=== PATIENT | male | born 1970 | race African-American/Black ===

== ENCOUNTER → 2020-10-21 13:47 | Outpatient (BNVA) | payer OTHER, SELFPAY | PROVIDERS: PCP Internal Medicine; Visit Provider Surgery ==

== ENCOUNTER 2021-01-14 06:03 | Day surgery (SDC) | payer OTHER, SELFPAY ==
[2021-01-07 14:38] VITALS: BMI 27.6
--- NOTE | 2021-01-12 12:32 | HO.ANESPROP2 ---
Documented by User: Jaida Ramirez 01/12/21 12:33 HPI - Anesthesia Eval Consult details Narrative: 50yo M for Colonoscopy PMFSH Active Problems Active Problems: All Active Problems (Updated 10/21/20 @ 14:51 by Dom Day MD) Colon cancer screening (Acute) Hyperlipidemia (Acute) Hypertension (Acute) Past Medical History Medical History Colon cancer screening Hyperlipidemia Hypertension Family History Family History Father History of colon cancer Surgical History Surgical History Hx of umbilical hernia repair Social History Social History Alcohol intake: never Smoking Status: Never smoker Use of substances other than those prescribed or required for medical reasons: No Have you been hit, kicked, punched, or otherwise hurt by someone within the past year? If so, by whom?: No Advance Directives: No Advance Directives Information Provided: No Advance Directives on File: No Recently lost weight without trying: No Eating poorly because of decreased appetite: No Nutrition Risks: No Nutritional Risk Meds Allergies Allergy/AdvReac Type Severity Reaction Status Date / Time No Known Allergies Allergy Verified 10/21/20 14:20 [No Known Allergies*] Home Medications Medication Instructions Recorded Confirmed Last Taken Type atorvastatin 10 mg tablet 10 mg PO DAILY 10/21/20 01/07/21 Unknown History blood pressure test kit-large #1 ea 10/21/20 Unknown History enalapril 10 1 tab PO DAILY 10/21/20 01/07/21 Unknown History mg-hydrochlorothiazide 25 mg tablet Exam Exam Date and Time: January 12, 2021 1232 Height,Weight and Vital Signs: Height 5 ft 7 in Weight 79.832 kg Assessment and Plan Assessment Anesthesia Assessment: Chart Reviewed Documented by User: Evelyn Narayan 01/14/21 07:36 PMFSH Past Medical History Medical History Colon cancer screening Hyperlipidemia Hypertension Family History Family History Father History of colon cancer Surgical History Surgical History Hx of umbilical hernia repair Social History Social History Alcohol intake: never Smoking Status: Never smoker Use of substances other than those prescribed or required for medical reasons: No Have you been hit, kicked, punched, or otherwise hurt by someone within the past year? If so, by whom?: No Advance Directives: No Advance Directives Information Provided: No Advance Directives on File: No Recently lost weight without trying: No Eating poorly because of decreased appetite: No Nutrition Risks: No Nutritional Risk Meds Allergies Allergy/AdvReac Type Severity Reaction Status Date / Time No Known Allergies Allergy Verified 10/21/20 14:20 [No Known Allergies*] Home Medications Medication Instructions Recorded Confirmed Last Taken Type atorvastatin 10 mg tablet 10 mg PO DAILY 10/21/20 01/07/21 Unknown History blood pressure test kit-large #1 ea 10/21/20 Unknown History enalapril 10 1 tab PO DAILY 10/21/20 01/07/21 Unknown History mg-hydrochlorothiazide 25 mg tablet Exam Airway Mallampati Class: II TM Dist: >3cm Neck ROM: Full Assessment and Plan Assessment Anesthesia Assessment: Anesthesia Plan Discussed and Chart Reviewed Final Anesthetic Review NPO: Yes ASA Class: II Final Preanesthetic Review: No Changes in Pt Med Stat, Meds/Allgs Chart Reviewed, Consent Obtained/Reviewed and Anes Risks/Benef Reviewed Patient Risk: Low Procedure Risk: Low Assessment/Block/Sedation in SS: Assess/Block/Sedation-SS Anesthetic Plan Anesthetic Plan: MAC: Disposition: Standard PACU
[2021-01-14 06:19] VITALS: BP 126/81; PULSE 75; RESP 16; TEMP 36.6; O2SAT 96
[2021-01-14] MEDS: Lactated Ringers 1,000 ML 100 ML IVCONT (06:34)
--- NOTE | 2021-01-14 07:20 | MHC.SHP ---
Pre-Procedural Eval Section B Chief Complaint: Screening Allergies: Allergies Allergy/AdvReac Type Severity Reaction Status Date / Time No Known Allergies Allergy Verified 10/21/20 14:20 [No Known Allergies*] Plan I have reviewed the history and physical and performed a pertinent physical examination on my patient. No changes have occurred unless specified.
--- NOTE | 2021-01-14 07:54 | P.OP_ITS ---
Operative Note Operative Note Date of Service: 01/14/21 Narrative: Preop diagnosis: Colon cancer screening Postop diagnosis: 1. Small polyp about 3 mm at level 25 cm Procedure: Colonoscopy with polypectomy using cold forceps Surgeon: Valentino whitmore MD Patient is a 50-year-old male here for screening colonoscopy. He understood the technique of the procedure. He was aware of the risks, benefits, and alternatives He was brought to the operating room and placed in left lateral decubitus position under monitored anesthesia care. A full digital rectal was done. A surgical time-out had been done earlier. Digital exam did not reveal any anal mass. I inserted the colonoscope gently through the anal orifice and advanced this with gentle insufflation all the way to the cecum. The cecum was intubated. The cecum identified via visualization of the ileocecal valve as we ll as the appendiceal orifice. The cecal mucosa was unremarkable. The scope was slowly withdrawn with careful examination of the entire colonic mucosa being done with scope withdrawal. The patient had adequate bowel prep so it was unlikely that any lesion may have been missed. At the level about the 25 cm, there was note of a small polyp about 3 mm in size. This was removed using multiple bites of the cold forceps. The rest of the distal sigmoid and rectum were unremarkable. The anal canal and the anal shelf were unremarkable.. The scope was then withdrawn completely with desufflation. The patient tolerated the procedure well. There were no immediate complications. There was no blood loss. Depending on the path report, his next colonoscopy may be in the next 10 years.
[2021-01-14 07:57] VITALS: BP 95/58; PULSE 74; RESP 16; TEMP 36.3; O2SAT 96
--- NOTE | 2021-01-14 07:58 | P.BOP_ITS ---
Brief Operative Note Date of Service: 01/14/21 Pre-op diagnosis: Colon cancer screening Post-op diagnosis: other (Small polyp at level 25 cm) Procedure: Colonoscopy with polypectomy using cold forceps Surgeon: Dom Day MD Anesthesia: MAC Was an Route Carrier used for this Procedure?: No Estimated blood loss (mL): 0 Pathology: other (Polyp) Condition: stable Disposition: PACU
[2021-01-14 08:12] VITALS: BP 106/71; PULSE 77; RESP 18; TEMP 36.3; O2SAT 99
== END 2021-01-14 08:45 | disposition home or self-care (01) ==
PROVIDERS: PCP Internal Medicine; Visit Provider Surgery
PROC: 0DJD8ZZ Inspection of Lower Intestinal Tract, Via Natural or Artificial Opening Endoscopic (ICD-10-PCS; CPT 45378; principal; 2021-01-14 07:30)
DX: Z12.11 Encounter for screening for malignant neoplasm of colon (principal); D12.5 Benign neoplasm of sigmoid colon; I10 Essential (primary) hypertension; Z79.899 Other long term (current) drug therapy
CPT/HCPCS: 45380; 88305

== ENCOUNTER → 2021-02-14 14:39 | Outpatient (BNVA) | payer OTHER, SELFPAY | PROVIDERS: PCP Internal Medicine; Visit Provider Surgery ==

== ENCOUNTER 2021-07-30 07:30 | Outpatient (REF) | payer OTHER, SELFPAY ==
[2021-07-30 09:21] LABS: Anion Gap 11 (12-20); Blood Urea Nitrogen 17 mg/dL (9-16); Calcium 9.1 mg/dL (8.4-10.2); Carbon Dioxide 30 mmol/L (22-29); Chloride 102 mmol/L (96-108); Cholesterol 175 mg/dL; Estimated Glomerular Filt Rate > 60; Glucose Random 97 mg/dL (60-115); HDL Cholesterol 34 mg/dL; LDL Cholesterol Calculated 108 mg/dl; Potassium 4.6 mmol/L (3.3-5.1); Sodium 138 mmol/L (135-145); Triglycerides 167 mg/dL
== END 2021-07-30 07:31 | disposition home or self-care (01) ==
LOC: HO.LAB 07:30
PROVIDERS: PCP Internal Medicine; Visit Provider Internal Medicine
DX: E78.5 Hyperlipidemia, unspecified (principal); I10 Essential (primary) hypertension
CPT/HCPCS: 36415; 80048; 80061

== ENCOUNTER 2023-05-21 12:30 | Outpatient (REF) | payer OTHER, SELFPAY ==
[2023-05-21 13:41] LABS: Estimated Average Glucose 108 mg/dL; Hemoglobin A1c % 5.4 % (<6.0)
[2023-05-21 13:52] LABS: Anion Gap 12 (12-20); Blood Urea Nitrogen 16 mg/dL (9-16); Calcium 9.8 mg/dL (8.4-10.2); Carbon Dioxide 28 mmol/L (22-29); Chloride 102 mmol/L (96-108); Estimated Glomerular Filt Rate > 60; Glucose Random 124 mg/dL (60-115); Potassium 3.3 mmol/L (3.3-5.1); Sodium 139 mmol/L (135-145)
== END 2023-05-21 12:31 | disposition home or self-care (01) ==
LOC: HO.HHCL 12:30
PROVIDERS: Visit Provider Internal Medicine
DX: I10 Essential (primary) hypertension (principal); Z00.00 Encounter for general adult medical examination without abnormal findings
CPT/HCPCS: 36415; 80048; 83036

== ENCOUNTER 2024-04-29 08:43 | Outpatient (REF) | payer OTHER, SELFPAY ==
[2024-04-29 12:09] LABS: Anion Gap 13 (12-20); Blood Urea Nitrogen 17 mg/dL (9-16); Calcium 9.6 mg/dL (8.4-10.2); Carbon Dioxide 27 mmol/L (22-29); Chloride 103 mmol/L (96-108); Cholesterol 185 mg/dL (<200); Estimated Glomerular Filt Rate > 60; Glucose Fasting 95 mg/dL (60-99); HDL Cholesterol 39 mg/dL (>40); LDL Cholesterol Calculated 102 mg/dL (<100); Potassium 3.4 mmol/L (3.3-5.1); Sodium 140 mmol/L (135-145); Triglycerides 224 mg/dL (<150)
== END 2024-04-29 08:44 | disposition home or self-care (01) ==
LOC: HO.HHCL 08:43
PROVIDERS: Visit Provider Internal Medicine
DX: I10 Essential (primary) hypertension (principal); E78.5 Hyperlipidemia, unspecified
CPT/HCPCS: 36415; 80048; 80061

== ENCOUNTER 2024-07-04 09:43 | Outpatient (REF) | payer OTHER, SELFPAY ==
--- NOTE | ~2024-07-04 | XR_ITS ---
EXAMINATION: XR KNEE, LEFT CLINICAL INFORMATION: Pain. COMPARISON: None. TECHNIQUE: AP and lateral views of the left knee. FINDINGS: No fracture or joint effusion. Alignment is anatomic. Joint spaces are maintained. No abnormal soft tissue calcification. XR/XR knee LT 2V IMPRESSION: Normal left knee. Electronically signed by: Wes Chase MD 07/04/2024 11:05 AM EDT
== END 2024-07-04 09:44 | disposition home or self-care (01) ==
LOC: HO.HHCX 09:43
PROVIDERS: Visit Provider Student in an Organized Health Care Education/Training Program
DX: M25.562 Pain in left knee (principal); G89.29 Other chronic pain
CPT/HCPCS: 73560

== ENCOUNTER 2024-07-18 09:00 | Outpatient (REF) | payer OTHER, SELFPAY ==
[2024-07-18 12:10] LABS: Uric Acid 4.9 mg/dL (3.4-7.0)
[2024-07-21 17:59] LABS: Lyme Abs Screen <0.90 index
== END 2024-07-18 09:01 | disposition home or self-care (01) ==
LOC: HO.HHCL 09:00
PROVIDERS: Visit Provider Emergency Medicine
DX: M25.562 Pain in left knee (principal)
CPT/HCPCS: 36415; 84550; 86617; 86618

== ENCOUNTER 2024-08-06 16:41 | Outpatient (REF) | payer OTHER, SELFPAY | END 2024-08-06 16:42 | disposition home or self-care (01) | LOC: HO.HHCLNP 16:41 | PROVIDERS: Visit Provider Emergency Medicine | DX: J02.9 Acute pharyngitis, unspecified (principal) | CPT/HCPCS: 87070 ==

== ENCOUNTER 2024-08-20 10:58 | Outpatient (REF) | payer OTHER, SELFPAY | END 2024-08-20 10:59 | disposition home or self-care (01) | LOC: HO.HHCL 10:58 | PROVIDERS: Visit Provider Internal Medicine | DX: Z00.00 Encounter for general adult medical examination without abnormal findings (principal); Z12.5 Encounter for screening for malignant neoplasm of prostate | CPT/HCPCS: 36415; 84153 ==

== ENCOUNTER 2025-01-05 15:42 | Outpatient (REF) | payer OTHER, SELFPAY ==
--- NOTE | ~2025-01-05 | XR_ITS ---
EXAMINATION: XR KNEE, RIGHT CLINICAL INFORMATION: right knee pain COMPARISON: None available. TECHNIQUE: Three views of the right knee. FINDINGS: No acute cortical disruption or malalignment. No lytic or blastic lesions. No joint effusion. There is a well-corticated calcification in the popliteal region. XR/XR knee RT 3V IMPRESSION: No acute fracture or dislocation. Electronically signed by: Juan Nagel MD 01/05/2025 03:56 PM EDT
--- OUTSIDE RECORDS SUMMARY | 2025-01-05 18:30 | XMS_ITS | Encounter Summary ---
Author Organization [employer] [facility] Address [address] [place] [address] Care Team Providers Care Cardroom Worker Name Role Phone Blaine Okeefe MD Primary Care Provide r Darci Nieto PharmD Unavailable [phone] Encounter Details Date Type Department Care Team (Late st Contact Info) Description 03/05/2023 Orders Only [facility] [address], [place] [phone] Mary Balderrama LPN Social History Tobacco Use Types Packs/Day Years Used Date Smoking Tobacco: Never Assessed Sex and Gender Information Value Date Recorded Sex Assigned at Male 07/10/2022 10:15 AM EDT Legal Sex Male 10:15 AM EDT Gender Identity Male 07/10/2022 10:15 AM EDT Sexual Orientation Straight 07/10/2022 10 :15 AM EDT COVID-19 Exposure Response Date Recorded In the last 10 days, have yo u been in contact with someone who was confirmed or suspected to have Coronavirus/COVID-19? No / Unsure 02/27/2023 7:28 AM EDT documented as of this encounter Plan of Treatment Upcoming Encounters Date Type Department Care Team (Late st Contact Info) Description 04/09/2025 3:00 PM EDT Office Visit [facility] [address] [place], [place] [phone] Blaine Okeefe MD [address] [place], [place] [phone] documented as of this encounter Procedures Procedure Name Priority Date/Time Associated Diagnosis Comments HEMOGLOBIN A1C Routine 05/21/2023 12:33 PM EDT BASIC METABOLIC PANEL Routine 05/21/2023 12:33 PM EDT documented in this encounter Results * (ABNORMAL) Basic Metabolic Panel (05/21/2023 12:33 PM EDT) Sodium 139 135 - 145 mmol/L [facility] Potassium 3.3 3.3 - 5.1 mmol/L [facility] Chloride 102 96 - 108 mmol/L [facility] Carbon Dioxide 28 22 - 29 mmol/L [facility] Anion Gap 12 12 - 20 [facility] Urea Nitrogen (BUN) 16 9 - 16 mg/dL [facility] Creatinine, Serum 0.98 0.5 - 1.4 mg/dL [facility] Estimated Glomerular Filt Rate >60 [facility] Comment:NOTE: For -Am erican individuals, multiply the result by 1.210.Chronic Kidney Disease: Estimated GFR < 60 mL/min/1.07j8Arhbdi Kidney Disease: Estimated GFR < 15 mL/min/1.73m2 Glucose 124(H) 60 - 115 mg/dL [facility] Calcium 9.8 8.4 - 10.2 mg/dL [facility] 05/21/2023 12:3 3 PM EDT 05/21/2023 1:09 PM EDT us Blaine Coley MD LAB BLOOD ORDERABLES Final Result [facility] [address], [place] [phone] * Hemoglobin A1c (05/21/2023 12:33 PM EDT) Hemoglobin A1c 5.4 <6.0 % [facility] Comment:Hemoglobin A1C Refer ence Range Adults: 4.8 - 6.0 % Non diabetic: < 6.0 % Goal: < 7.0 %Additional Action Suggested: > 8.0 %Note: Hemoglobin A1c results are invalid for patients with abnormal amounts of HbF. Blood transfusions may impact the HbA1c concentration in the patient sample. Estimated Average Glucose 108 mg/dL [facility] Comment:eAG = Estimated ave rage glucose which is %A1C expressed asaverage glucose, using the formula of the J8G-UkpetbeVryavax Glucose study (ADAG), Diabetes Care, Vol.31,#8,2007 05/21/2023 12:3 3 PM EDT 05/21/2023 1:09 PM EDT us Blaine Coley MD LAB BLOOD ORDERABLES Final Result [facility] [address] [place] [phone] documented in this encounter Visit Diagnoses Not on filedocumented in this encounter Care Teams Cardroom Worker Relationship Specialty Start Date End Date Blaine Okeefe MD [address] [place] [phone] PCP - General Internal Medicine 04/14/14 Darci Nieto PharmD [address] [place] [phone] Pharmacist Internal Medicine 04/23/23 documented as of this encounter
--- OUTSIDE RECORDS SUMMARY | 2025-01-05 18:30 | XMS_ITS | Encounter Summary ---
Author Organization [employer] Address [address] [place] [address] Care Team Providers Care Statistical Clerk Advertising Name Role Phone Blaine Okeefe MD Primary Care Provide r Darci Nieto PharmD Unavailable [phone] Reason for Referral * Consultation (Routine) - Pending Review Specialty Diagnoses / Procedures Referred By Contac t Referred To Contact Physical Therapy Diagnoses Osteoarthrosis, localized, primary, knee, right Mariama Dawson MD [address] [place] [address] Phone: tel: fax: Referral ID Status Reason Start Date Expiration Date Visits Requested Visits Authorized [id number] Pending Review Specialty Services Required 01/05/2025 01/05/2026 1 1 * Consultation (Routine) - Authorized Specialty Diagnoses / Procedures Referred By Contac t Referred To Contact Family Medicine Diagnoses Osteoarthrosis, localized, primary, knee, right Mariama Dawson MD [address] [place] [address] Phone: tel: fax: Robyn Marquez MD [address] [place] [address] Phone: tel: fax: Referral ID Status Reason Start Date Expiration Date Visits Requested Visits Authorized [id number] Authorized Consult and Treat 01/05/2025 01/05/2026 1 1 Reason for Visit * Reason Comments Knee Pain Encounter Details Date Type Department Care Team (Late st Contact Info) Description 01/05/2025 3:20 PM EDT Office Visit [facility] [address] [place] [address] Mariama Dawson MD [address] [place] [address] Osteoarthrosis, localized, primary, knee, right (Primary Dx) Social History Tobacco Use Types Packs/Day Years Used Date Smoking Tobacco: Never Passive Smoke Exposure: Never Smokeless Tobacco: Never Alcohol Use Standard Drinks/Week Comments Never 0 (1 standard drink = 0.6 oz pur e alcohol) Depression Answer Date Recorded Patient Health Questionnaire-9 Score 0 07/31/2024 Patient Health Questionnaire-9 Score 0 07/31/2024 Last PHQ-9: Questionnaire Data Not on file 1 09/30/2023 Housing Stability Answer Date Recorded What is your housing situation today? I have ava moreno 07/31/[address] you li ve. Do you have problems with any of the following? None of the above 07/31/2024 Food Insecurity Answer Date Recorded Within the past 12 months, y ou worried that your food would run out before you got money to buy more: Never True 07/31/2024 Within the past 12 months,th e food you bought just didn't last and you didn't have enough money to get more: Never True Transportation Answer Date Recorded In the past 12 months, has l ack of transportation kept you from medical appts, meetings, work or from getting things needed for daily living? No 07/31/2024 Utilities Answer Date Recorded In the past 12 months, has t he electric, gas, oil or water company threatened to shut off services in your home? No 07/31/2024 Depression Answer Date Recorded Patient Health Questionnaire-2 Score 0 07/31/2024 Internet Access Answer Date Recorded Internet Access Q1 Yes 07/31/2024 Internet Access Q2 Not on file 07/31/2024 Sex and Gender Information Value Date Recorded Sex Assigned at Male 07/10/2022 10:15 AM EDT Legal Sex Male 10:15 AM EDT Gender Identity Male 07/10/2022 10:15 AM EDT Sexual Orientation Straight 07/10/2022 10 :15 AM EDT documented as of this encounter Last Filed Vital Signs Vital Sign Reading Time Taken Comments Blood Pressure 158/89 01/05/2025 3:23 PM EDT Pulse 87 01/05/2025 3:23 PM EDT Temperature 36.7 ??C (98.1 ??F) 01/05/2025 3:23 PM ED T Respiratory Rate 16 01/05/2025 3:23 PM EDT Oxygen Saturation 98% 01/05/2025 3:23 PM EDT Inhaled Oxygen Concentration - - Weight 82.1 kg (181 lb) 01/05/2025 3:23 PM EDT Height - - Body Mass Index 28.35 12/04/2024 3:04 PM EDT documented in this encounter Progress Notes * Mariama Dawson MD - 01/05/2025 3:20 PM EDT SUBJECTIVE: Macho Steele is a 54 y.o. year old male who presents for Walk In Center/knee pain . Denies recent illness, injury, or hospitalization. Acute Concerns: Complaint of exacerbation of right knee pain for 5 days, no recent accidental fall he has been doing activities that require some kneeling. Had similar symptoms many years ago and last year had similar symptoms in the left knee that improved with steroid injection. He has never been on PT Social History Social History Narrative Not on file Patient Active Problem List Diagnosis Essential hypertension Hyperlipidemia Tubular adenoma of colon Genital herpes simplex Microscopic hematuria Preventative health care Overweight (BMI 25.0-29.9) Osteoarthrosis, localized, primary, knee, right No family history on file. Review of Systems Constitutional: Negative for fever. HENT: Negative for congestion, ear pain, rhinorrhea and sore throat. Eyes: Negative for pain and discharge. Respiratory: Negative for cough and shortness of breath. Cardiovascular: Negative for chest pain. Gastrointestinal: Negative for abdominal pain, constipation, diarrhea and nausea. Endocrine: Negative for polydipsia. Genitourinary: Negative for dysuria and frequency. Musculoskeletal: Positive for arthralgias and gait problem. Negative for back pain and neck pain. Neurological: Negative for dizziness, numbness and headaches. Psychiatric/Behavioral: Negative for agitation. OBJECTIVE: Vitals: 01/05/25 1523 BP: (!) 158/89 Pulse: 87 Resp: 16 Temp: 98.1 ??F (36.7 ??C) SpO2: 98% Physical Exam Constitutional: Appearance: Normal appearance. HENT: Right Ear: Tympanic membrane and ear canal normal. Left Ear: Tympanic membrane and ear canal normal. Mouth/Throat: Mouth: Mucous membranes are moist. Pharynx: No oropharyngeal exudate or posterior oropharyngeal erythema. Eyes: Pupils: Pupils are equal, round, and reactive to light. Cardiovascular: Rate and Rhythm: Normal rate and regular rhythm. Heart sounds: No murmur heard. Pulmonary: Breath sounds: Normal breath sounds. No wheezing. Abdominal: General: Bowel sounds are normal. Palpations: Abdomen is soft. Tenderness: There is no abdominal tenderness. Musculoskeletal: General: Normal range of motion. Cervical back: Normal range of motion. No tenderness. Right knee: Swelling (medial) and bony tenderness (medial) present. Tenderness present over the medial joint line and MCL. Skin: General: Skin is warm. Neurological: General: No focal deficit present. Mental Status: He is alert and oriented to person, place, and time. Psychiatric: Mood and Affect: Mood normal. Problem List Items Addressed This Visit Osteoarthrosis, localized, primary, knee, right - Primary Start meloxicam daily x 1 to 2 days and Tylenol as needed breakthrough pain Avoid kneeling, lifting heavy weights or bending over or any activities that require knee movements. Advised to use a brace on affected knee Order x-rays and refer to PT Will refer for steroid injection Relevant Orders XR Knee 3 Views Right (Completed) Referral to [facility] Injection Clinic Referral to Physical Therapy Follow Up: Current Outpatient Medications on File Prior to Visit Medication Sig Dispense Refill acetaminophen (Tylenol) 500 MG tablet Take 2 tablets (1,000 mg) by mouth every 6 (six) hours if needed for moderate pain or fever for up to 25 doses. 50 tablet 0 atorvastatin (Lipitor) 10 MG tablet TAKE 1 TABLET BY MOUTH EVERY DAY 90 tablet 1 enalapril (Vasotec) 10 MG tablet TAKE 1 TABLET BY MOUTH EVERY MORNING 90 tablet 3 hydroCHLOROthiazide (HYDRODiuril) 25 MG tablet TAKE 1 TABLET BY MOUTH EVERY MORNING 90 tablet 3 ibuprofen 800 MG tablet Take 1 tablet (800 mg) by mouth every 6 (six) hours if needed for mild pain. 90 tablet 3 No current facility-administered medications on file prior to visit. documented in this encounter Miscellaneous Notes * Assessment & Plan Note - Mariama Dawson MD - 01/05/2025 4:10 PM EDT Associated Problem(s): Osteoarthrosis, localized, primary, knee, right Start meloxicam daily x 1 to 2 days and Tylenol as needed breakthrough pain Avoid kneeling, lifting heavy weights or bending over or any activities that require knee movements. Advised to use a brace on affected knee Order x-rays and refer to PT Will refer for steroid injection documented in this encounter Plan of Treatment Upcoming Encounters Date Type Department Care Team (Late st Contact Info) Description 04/09/2025 3:00 PM EDT Office Visit [facility] [address] [place] [address] Blaine Okeefe MD [address] [place] [address] Scheduled Referrals Name Type Priority Associated Diagnoses Orde r Schedule Referral to Joint Injection Clinic Outpatient Referral Routine Osteoarthrosis, localized, primary, knee, right Expected: 01/05/2025 (Approximate), Expires: 01/05/2026 Referral to Physical Therapy Outpatient Referral Routine Osteoarthrosis, localized, primary, knee, right Expected: 01/05/2025 (Approximate), Expires: 01/05/2026 documented as of this encounter Goals Goal Patient Goal Type Associated Problems Recent Progress Patient-Stated? Author Remain at or Below Target Blood Pressure General No Darci Nieto, JeffD documented as of this encounter Procedures Procedure Name Priority Date/Time Associated Diagnosis Comments XR KNEE 3 VIEWS RIGHT Routine 01/05/2025 3:42 PM EDT Osteoarthrosis, localized, primary, knee, right documented in this encounter Results * XR Knee 3 Views Right (01/05/2025 3:42 PM EDT) Anatomical Region Laterality Modality Lower Extremities, Knee Right Radiogra phic Imaging 01/05/2025 3:42 PM EDT Narrative 01/05/2025 3:59 PM EDT ?[facility] ?[address] ?[place] [address] ?XRay Report ? Signed ? Patient: Ivette,Macho ?MR#: [id number] ?? [id number] ? : 1970 ?Acct:[id number] ? Age/Sex: 54 / M ?ADM Date: 01/05/25 ? Loc: HO.HHCX ? Attending Dr: Mariama Dawson MD ? Ordering Physician: Mariama Dawson MD ?? Date of Service: 01/05/25 ?? Procedure(s): XR knee RT 3V ?? Accession Number(s): [id number] ? cc: Mariama Dawson MD ? EXAMINATION: ?? XR KNEE, RIGHT ? CLINICAL INFORMATION: ?? right ??knee pain ? COMPARISON: ?? None available. ? TECHNIQUE: ?? Three views of the right knee. ? FINDINGS: ?? No acute cortical disruption or malalignment. No lytic or blastic ?? lesions. No joint effusion. There is a well-corticated calcification in ?? the popliteal region. ? XR/XR knee RT 3V ?? IMPRESSION: ?? No acute fracture or dislocation. ? Electronically signed by: ??Juan Nagel MD ??01/05/2025 03:56 PM ?? EDT ? Dictated By: ?Juan Covarrubias MD ? Signed By: ?<Electronically signed by Juan Salamanca MD in OV> ? 01/05/25 1556 ? DD/ 1542 ? TD/TT: 01/05/25 1553 ? Machine Helper: ? Procedure Note Britta Avendaño - 01/05/2025 [facility] [address] [facility] [place] [address] XRay Report Signed Patient: Carlos Steele#: [id number] : 1970Acct:[id number] Age/Sex: 54 / MADM Date: 01/05/25 Loc: HO.HHCX Attending Dr: Mariama Dawson MD Ordering Physician: Mariama Dawson MD Date of Service: 01/05/25 Procedure(s): XR knee RT 3V Accession Number(s): [id number] cc: Mariama Dawson MD EXAMINATION: XR KNEE, RIGHT CLINICAL INFORMATION: right knee pain COMPARISON: None available. TECHNIQUE: Three views of the right knee. FINDINGS: No acute cortical disruption or malalignment. No lytic or blastic lesions. No joint effusion. There is a well-corticated calcification in the popliteal region. XR/XR knee RT 3V IMPRESSION: No acute fracture or dislocation. Electronically signed by: Juan Nagel MD 01/05/2025 03:56 PM EDT Dictated By: Juan Covarrubias MD Signed By: <Electronically signed by Juan Salamanca MDin OV> 01/05/25 1556 DD/ 1542 TD/TT: 01/05/25 1553 Machine Helper: Mariama Dawson MD IMG XR PROCEDURES Final Result documented in this encounter Visit Diagnoses Diagnosis Osteoarthrosis, localized, primary, knee, right- Primary documented in this encounter Additional Health Concerns Assessment Noted Time PHQ-9 Depression Total Score: 0 07/31/20 24 1:01 PM EST documented as of this encounter Care Teams Statistical Clerk Advertising Relationship Specialty Start Date End Date Blaine Okeefe MD [address] [place] [address] PCP - General Internal Medicine 04/14/14 Darci Nieto PharmD [address] [place] [address] Pharmacist Internal Medicine 04/23/23 documented as of this encounter
--- OUTSIDE RECORDS SUMMARY | 2025-01-05 18:30 | XMS_ITS | Encounter Summary ---
Author Organization [employer] Address [address] [facility] [address] [place] [address] Care Team Providers Care Word Processor Name Role Phone Blaine Okeefe MD Primary Care Provide r Darci Nieto PharmD Unavailable [phone] Encounter Details Date Type Department Care Team (Late st Contact Info) Description 08/06/2024 Orders Only [facility] [address] [place], [place] [phone] Rober Gonsales MD [address] [place] [address] Social History Tobacco Use Types Packs/Day Years Used Date Smoking Tobacco: Never Smokeless Tobacco: Never Alcohol Use Standard [...] Description 04/09/2025 3:00 PM EDT Office Visit [facility] [address] [place] [address] Blaine Okeefe MD [address] [place] [address] documented as of this encounter Goals Goal Patient Goal Type Associated Problems Recent Progress Patient-Stated? Author Remain at or Below Target Blood Pressure General No Darci Nieto PharmD documented as of this encounter Visit Diagnoses Not on filedocumented in this encounter Additional Health Concerns Assessment Noted Time PHQ-9 Depression Total Score: 0 07/31/20 24 1:01 PM EST documented as of this encounter Care Teams Word Processor Relationship Specialty Start Date End Date Blaine Okeefe MD [address] [place] [phone] PCP - General Internal Medicine 04/14/14 Darci Nieto PharmD [address] [place] [phone] Pharmacist Internal Medicine 04/23/23 documented as of this encounter
--- OUTSIDE RECORDS SUMMARY | 2025-01-05 18:30 | XMS_ITS | Clinical Summary ---
Author Organization [employer] Address [address] [place] [address] 7[address] [place] [address] Care Team Providers Care Court Recording Monitor Name Role Phone Blaine Okeefe MD Primary Care Provide r Darci Nieto PharmD Unavailable [phone] Allergies No known active allergies Medications hydroCHLOROthia zide (HYDRODiuril) 25 MG tablet TAKE 1 TABLET BY MOUTH EVERY MORNING 90 tablet 3 06/24/2024 Active enalapril (Vasotec) 10 MG tablet TAKE 1 TABLET BY MOUTH EVERY MORNING 90 tablet 3 06/24/2024 Active ibuprofen 800 MG tablet Take 1 tablet (800 mg) by mouth every 6 (six) hours if needed for mild pain. 90 tablet 3 07/04/2024 07/04/20 25 Active acetaminophen (Tylenol) 500 MG tablet Take 2 tablets (1,000 mg) by mouth every 6 (six) hours if needed for moderate pain or fever for up to 25 doses. 50 tablet 08/06/2024 Active atorvastatin (Lipitor) 10 MG tablet TAKE 1 TABLET BY MOUTH EVERY DAY 90 tablet 1 08/26/2024 Active meloxicam (Mobic) 15 MG tablet Take 1 tablet (15 mg) by mouth Once per day. 30 tablet 01/05/2025 01/06/20 26 Active Active Problems Problem Noted Date Diagnosed Date Osteoarthrosis, localized, primary, knee, right 01/05/2025 Assessment & Plan (01/05/2025 4:10 PM EDT): Start meloxicam daily x 1 to 2 days and Tylenol as needed breakthrough pain Avoid kneeling, lifting heavy weights or bending over or any activities that require knee movements. Advised to use a brace on affected knee Order x-rays and refer to PT Will refer for steroid injection Overweight (BMI 25.0-29.9) 12/04/2024 Assessment & Plan (12/04/2024 3:23 PM EDT): Patient has been counseled and educated about diet and exercise. Personal goal of weight loss discussedPatient has comorbidity of: HTN Dietary Recommendations: Fruits, vegetables, whole grains, protein foods, and fat-free or low-fat dairy products are healthy choices. Eat different types of protein foods in your diet. This can include seafood, lean meats, poultry, beans, peas, lentils, nuts, seeds, soy products, and eggs. Limit foods and beverages higher in added sugars, saturated fat, and sodium. Exercise Recommendations: At least 150 minutes of moderate-intensity physical activity per week, or an equivalent combination of moderate- and vigorous-intensity activity Microscopic hematuria 07/31/2024 Assessment & Plan (07/31/2024 12:36 PM EST): Pt has a Hx of microscopic hematuria for which he had an extensive work up at [facility], last seen on 03/07/2010 work up included a negative cystoscopy in [address] Urogram in 2004. Preventative health care 07/31/2024 Assessment & Plan (12/04/2024 3:22 PM EDT): PSA 08/20/2024: Normal Colonoscopy: 01/14/2021 showed a tubular adenoma will need a 5 yr f/u Assessment & Plan (07/31/2024 1:01 PM EST): LEXII: 08/27/2018 Normal Colonoscopy: 01/14/2021 showed a tubular adenoma will need a 5 yr f/u Tubular adenoma of colon 07/21/2024 Essential hypertension 01/09/2019 Overview (04/28/2024): Pharmacotherapy: Updated 04/28/24 - Enalapril 10mg daily - HCTZ 25mg daily History: Updated 04/28/24 In CDTM since 2019. He has been stable on Enalapril/HCTZ 10-25mg daily. into 2 Rxs due to shortage. At home BP remains controlled, less than 140/90. Graduated CDTM, return to PCP for follow-up. Assessment & Plan (12/04/2024 3:21 PM EDT): Pt here for a f/u BP Controlled, EKG 07/31/2024 Normal He is on a regimen of Enalapril 10 mg po daily and Hctz 25 mg po daily, reports compliance Most recent electrolytes, Bun and Creatinine done on: Lab Results Component Value Date NA 140 04/29/2024 NA 139 05/21/2023 K 3.4 04/29/2024 K 3.3 05/21/2023 CL 103 04/29/2024 CL 102 05/21/2023 BUN 17 (H) 04/29/2024 BUN 16 05/21/2023 CREATININE 0.91 04/29/2024 CREATININE 0.98 05/21/2023 were within normal limits. f/u in 4 months patient advised to adhere to a low sodium diet, encouraged about medication compliance, counseled about weight loss. Assessment & Plan (07/31/2024 1:42 PM EST): Pt here for a f/u BP Controlled, EKG today Normal He is on a regimen of Enalapril 10 mg po daily and Hctz 25 mg po daily, reports compliance Most recent electrolytes, Bun and Creatinine done on: Lab Results Component Value Date NA 140 04/29/2024 NA 139 05/21/2023 K 3.4 04/29/2024 K 3.3 05/21/2023 CL 103 04/29/2024 CL 102 05/21/2023 BUN 17 (H) 04/29/2024 BUN 16 05/21/2023 CREATININE 0.91 04/29/2024 CREATININE 0.98 05/21/2023 were within normal limits. f/u in 4 months patient advised to adhere to a low sodium diet, encouraged about medication compliance, counseled about weight loss. Assessment & Plan (04/28/2024 1:08 PM EDT): Assessment: - BP is at goal of less than 140/90 per JNC8 guidelines Plan/ Recommendations: - Continue current therapy and monitoring - BMP ordered for repeat Monitoring: Potassium (mmol/L) Date Value 05/21/2023 3.3 07/30/2021 4.6 BP Readings from Last 2 Encounters: 04/23/23 110/70 04/24/22 131/89 Assessment & Plan (04/23/2023 11:46 AM EDT): - BMP due for repeat Genital herpes simplex 01/09/2019 Assessment & Plan (07/31/2024 12:35 PM EST): Pt here for a f/u Previous Exam suggestive of Genital Herpes Viral Culture was positive Back then he had received Empiric treatment with Valtrex Negative for other STDS Previously discussed with pt safe sex practices and to discuss with partner to minimize risk of infection Hyperlipidemia 04/11/2012 Overview (04/28/2024): Pharmacotherapy: - Atorvastatin 10mg daily Assessment & Plan (07/31/2024 12:34 PM EST): Patient with elevated lipids. Most recent lipid profile from: Lab Results Component Value Date TRIG 224 (H) 04/29/2024 CHOL 185 04/29/2024 LDLCHOLCAL 102 (H) 04/29/2024 HDL 39 (L) 04/29/2024 Currently on an regimen of: Fish oil capsules 1000 mg po TID and Atorvastatin 10 mg po qhs Today I have recommend to continue with current regimen advised to try to adhere to a low cholesterol diet, counseled and educated about diet and exercise, Patient encouraged to come up with a personal goal for weight loss. Assessment & Plan (04/28/2024 1:11 PM EDT): Plan: - Lipid panel ordered Encounters Date Type Department Care Team Description 01/05/2025 3:20 PM EDT Office Visit [facility] [address] [address] Mariama Dawson MD Osteoarthrosis, localized, primary, knee, right (Primary Dx) 12/04/2024 3:00 PM EDT Office Visit [facility] [address] [place] [address] Blaine Okeefe MD Essential hypertension (Primary Dx); Overweight (BMI 25.0-29.9); Dietary counseling; Exercise counseling; Preventative health care; Encounter for immunization 12/04/2024 Travel 11/27/2024 Patient Outreach [facility] [address] [place] [address] Blaine Okeefe MD Pre-visit Planning ([facility] unable to reach [facility]) 11/24/2024 Telephone [facility] [address] [place] [address] Blaine Okeefe MD Chart Prep from Last 3 Months Immunizations Name Administration Dates Next Due Influenza Injectable Quadriv alant Preservative Free IIV4 MDCK 05/31/2023,05/25/2022,06/17/2021,2019 Influenza injectable quadriv alent IIV4 with preservative 05/22/2018 Influenza, IIV3, injectable 06/30/2010 Influenza, seasonal, injecta ble, preservative free 05/21/2024 Moderna Covid-19 Vaccine 6+ Bivalent 08/29/2022 Pfizer Covid-19 Vaccine 12+ 07/31/2024, 3 Pneumococcal Conjugate PCV 20 12/04/2024 TD (adult), 2 Lf tetanus tox oid, preservative free, adsorbed 06/26/2005 Tdap 02/16/2022,02/13/2012 Zoster, Recombinant 02/23/2023,11/17/2022 Social History Tobacco Use Types Packs/Day Years Used Date Smoking Tobacco: Never Passive Smoke Exposure: Never Smokeless Tobacco: Never Tobacco Cessation:Counseling Given: Not Answered Alcohol Use Standard Drinks/Week Comments Never 0 [...] Orientation Straight 07/10/2022 10 :15 AM EDT Last Filed Vital Signs Vital Sign Reading Time Taken Comments Blood Pressure 158/89 01/05/2025 3:23 PM EDT Pulse 87 01/05/2025 3:23 PM EDT Temperature 36.7 ??C (98.1 ??F) 01/05/2025 3:23 PM ED T Respiratory Rate 16 01/05/2025 3:23 PM EDT Oxygen Saturation 98% 01/05/2025 3:23 PM EDT Inhaled Oxygen Concentration - - Weight 82.1 kg (181 lb) 01/05/2025 3:23 PM EDT Height 170.2 cm (5' 7 ) 12/04/2024 3:04 PM EDT Body Mass Index 28.35 12/04/2024 3:04 PM EDT Plan of Treatment Upcoming Encounters Date Type Department Care Team (Late st Contact Info) Description 04/09/2025 3:00 PM EDT Office Visit [facility] [address] [place] [address] Blaine Okeefe MD [address] [place] [address] Health Maintenance Due Date Last Done Comments CT Colonography 1970 FIT DNA/Cologuard 1970 FIT 1970 FOBT 1970 HIV Screening 1970 Sigmoidoscopy 1970 Hepatitis C Screening 1988 Hepatitis B Vaccines (1 of 3 - 19+ 3-dose series) 1989 Alcohol/Substance Use Screening 07/31/2025 07/31/2024 Depression Screening 07/31/2025 07/31/2024, 07/31/20 24 SDOH Screening 07/31/2025 07/31/2024 Tobacco Screening 12/04/2025 12/04/2024 Colonoscopy 01/14/2026 01/14/2021 Colorectal Cancer Screening 01/14/2026 Lipid Panel 04/29/2029 04/29/2024, 07/12, 05/14/2020 DTaP/Tdap/Td Vaccines (3 - Td or Tdap) 02/17/2032 02/16/2022, 02/13/2012, 06/26/2005 RSV Patients and Patients Aged 60 years or older (1 - 1-dose 75+ series) 2045 Zoster Vaccines Completed 02/23/2023, 11/17/2022 Influenza Vaccine Completed 05/21/2024, , 05/25/2022, Additional history exists COVID-19 Vaccine Completed 07/31/2024, , 08/29/2022, Additional history exists Pneumococcal Vaccine: 50+ Years Completed 12/04/2024 HIB Vaccines Aged Out No longer eligi ble based on patient's age to complete this topic HPV Vaccines Aged Out No longer eligi ble based on patient's age to complete this topic Hepatitis A Vaccines Aged Out No long er eligible based on patient's age to complete this topic IPV Vaccines Aged Out No longer eligi ble based on patient's age to complete this topic Meningococcal Vaccine Aged Out No ingrid delmis eligible based on patient's age to complete this topic RSV under 20 months Aged Out No longe r eligible based on patient's age to complete this topic Rotavirus Vaccines Aged Out No longer eligible based on patient's age to complete this topic Goals Goal Patient Goal Type Associated Problems Recent Progress Patient-Stated? Author Remain at or Below Target Blood Pressure General No Darci Nieto, Jerry Procedures Procedure Name Priority Date/Time Associated Diagnosis Comments XR KNEE 3 VIEWS RIGHT Routine 01/05/2025 3:42 PM EDT Osteoarthrosis, localized, primary, knee, right LIPID PANEL, STANDARD Routine 04/29/2024 8:45 AM EDT HM COLONOSCOPY Routine 01/14/2021 from Last 3 Months or Most Recently Relevant to Health Maintenance Results * XR Knee 3 Views Right (01/05/2025 3:42 PM EDT) Anatomical Region Laterality Modality Lower Extremities, Knee Right Radiogra phic Imaging 01/05/2025 3:42 PM EDT Narrative 01/05/2025 3:59 PM EDT ?[facility] ?[address] ?[place] [address] ?XRay Report ? Signed ? Patient: Macho Steele ?MR#: [id number] ?? [id number] ? : 1970 ?Acct:[id number] ? Age/Sex: 54 / M ?ADM Date: 01/05/25 ? Loc: HO.HHCX ? Attending Dr: Mariama Dawson MD ? Ordering Physician: Mariama Dawson MD ?? Date of Service: 01/05/25 ?? Procedure(s): XR knee RT 3V ?? Accession Number(s): [id number] ? cc: Mariama Dawson MD ? EXAMINATION: [...] Nagel MD ??01/05/2025 03:56 PM ?? EDT RP ? Dictated By: ?Juan Covarrubias MD ? Signed By: ?<Electronically signed by Juan Salamanca MD in OV> ? 01/05/25 1556 ? DD/ 1542 ? TD/TT: 01/05/25 1553 ? Diesel Dinkey Operator: ? Procedure Note Donotuseinterpreter, Image - 01/05/[address] [address] XRay Report Signed Patient: Carlos Steele#: [id number] : 1970Acct:[id number] Age/Sex: 54 / MADM Date: 01/05/25 [facility]: Mariama Dawson MD Ordering Physician: Mariama Dawson MD Date of Service: 01/05/25 Procedure(s): XR knee RT 3V Accession Number(s): [id number] cc: Mariama Dawson MD EXAMINATION: XR KNEE, [...] Juan Nagel MD 01/05/2025 03:56 PM EDT RP Dictated By: Juan Covarrubias MD Signed By: <Electronically signed by Juan Salamanca MDin OV> 01/05/25 1556 DD/ 1542 TD/TT: 01/05/25 1553 Diesel Dinkey Operator: Mariama Dawson MD IMG XR PROCEDURES Final Result * (ABNORMAL) Lipid Panel, Standard (04/29/2024 8:45 AM EDT) Triglycerides 224(H) <150 mg/dL [facility] Comment:Desirable Triglyceri de: less than 150 mg/dLBorderline High Triglyceride 150-199 mg/dLHigh Triglyceride: 200-499 mg/dLVery High Triglyceride: greater than or equal to 5OO mg/dL Cholesterol 185 <200 mg/dL [facility] Comment:Desirable Cholestero l: less than 200 mg/dLBorderline High Cholesterol: 200-239 mg/dLHigh Cholesterol: greater than 239 mg/dL LDL Cholesterol Calculated 102(H) <100 mg/dL [facility] Comment:Desirable LDL: less than 100 mg/dLNear Optimal/Above Optimal LDL: 110- 129 mg/dLBorderline High LDL: 130-159 mg/dLHigh LDL: 160-189 mg/dLVery High LDL: greater than or equal to 190 mg/dL HDL Cholesterol 39(L) >40 mg/dL [facility] Comment:Desirable HDL: great er than 40 mg/dL Note: This HDL assay may give artificially low results in patients with liver disease. 04/29/2024 8:45 AM EDT 04/29/2024 11:18 AM EDT Blaine Coley MD LAB BLOOD ORDERABLES Final Result [facility] [address] [place] [phone] * Colonoscopy (01/14/2021) Colonoscopy Normal Normal 01/14/2021 Narrative Marie Viramontes - 01/14/2021 1:55 PM EDT Recommended 5 year follow up Historical Provider HEALTH MAINTENANCE Edited Result - Final from Last 3 Months or Most Recently Relevant to Health Maintenance Insurance Care Teams Court Recording Monitor Relationship Specialty Start Date End Date Blaine Okeefe MD [address] [place] [phone] PCP - General Internal Medicine 04/14/14 Darci Nieto PharmD [address] [place] [phone] Pharmacist Internal Medicine 04/23/23
--- OUTSIDE RECORDS SUMMARY | 2025-01-05 18:30 | XMS_ITS | Encounter Summary ---
Author Organization [employer] [facility] Address [address] [facility] [address] [place] [address] Care Team Providers Care Restaurant And Bar Manager Name Role Phone Blaine Okeefe MD Primary Care Provide r Darci Nieto PharmD Unavailable [phone] Encounter Details Date Type Department Care Team (Latest Contact Info) Description 09/19/2018 Abstract [facility] CONVERSIONS Dental, Provider, DDS Social History Tobacco Use Types Packs/Day Years [...] Description 04/09/2025 3:00 PM EDT Office Visit [facility] [address] [place] [address] Blaine Okeefe MD [address] [place] [address] documented as of this encounter Visit Diagnoses Not on filedocumented in this encounter Care Teams Restaurant And Bar Manager Relationship Specialty Start Date End Date Blaine Okeefe MD [address] [place] [address] PCP - General Internal Medicine 04/14/14 Darci Nieto, PharmD [address] [place] [address] Pharmacist Internal Medicine 04/23/23 documented as of this encounter
--- OUTSIDE RECORDS SUMMARY | 2025-01-05 18:30 | XMS_ITS | Encounter Summary ---
Author Organization [facility] Address [address] [facility] [address]t [place] [address] Care Team Providers Care Frit Mixer Name Role Phone Blaine Okeefe MD Primary Care Provide r Darci Nieto PharmD Unavailable [phone] Encounter Details Date Type Department Care Team (Late st Contact Info) Description 01/17/2023 Abstract [facility] [address] [place] [phone] Blaine Okeefe MD [address] [place] [phone] Social History Tobacco Use Types Packs/Day Years [...] Description 04/09/2025 3:00 PM EDT Office Visit [facility] [address] [place], [place] [phone] Blaine Okeefe MD [address] [place], [place] [phone] documented as of this encounter Procedures Procedure Name Priority Date/Time Associated Diagnosis Comments HM COLONOSCOPY Routine 01/14/2021 documented in this encounter Results * Colonoscopy (01/14/2021) Colonoscopy Normal Normal 01/14/2021 Marie Tapia - 01/14/2021 1:55 PM EDT Recommended 5 year follow up us Historical Provider [facility] Edited Result - Final documented in this encounter Visit Diagnoses Not on filedocumented in this encounter Care Teams Frit Mixer Relationship Specialty Start Date End Date Blaine Okeefe MD [address] [place] [address] PCP - General Internal Medicine 04/14/14 Darci Nieto PharmD [address] [place] [address] Pharmacist Internal Medicine 04/23/23 documented as of this encounter
== END 2025-01-05 15:43 | disposition home or self-care (01) ==
LOC: HO.HHCX 15:42
PROVIDERS: Visit Provider Internal Medicine
DX: M17.11 Unilateral primary osteoarthritis, right knee (principal)
CPT/HCPCS: 73562

== ENCOUNTER → 2025-01-05 15:42 | Outpatient (BNV) | payer OTHER, SELFPAY | PROVIDERS: Visit Provider Radiology Diagnostic Radiology | DX: M25.561 Pain in right knee (principal) | CPT/HCPCS: 73562 ==

== ENCOUNTER 2025-01-07 11:48 | Outpatient (REF) | payer OTHER, SELFPAY ==
--- OUTSIDE RECORDS SUMMARY | 2025-01-07 13:20 | XMS_ITS | Encounter Summary ---
Author Organization [employer] Address [address] [facility] [address] [place] [address] Care Team Providers Care Reducing System Operator Name Role Phone Blaine Okeefe MD Primary Care Provide r Darci Nieto PharmD Unavailable [phone] Encounter Details Date Type Department Care Team (Late st Contact Info) Description 03/05/2023 Orders Only [facility] [address] [place] [address] Mary Balderrama LPN Social History Tobacco Use [...] Care Team (Late st Contact Info) Description 01/20/2025 9:00 AM EDT Procedure Visit [facility] [address] [place] [phone] Robyn Marquez MD [address] [place] [address] 04/09/2025 3:00 PM EDT Office Visit [facility] [address] [facility] [address] Blaine Okeefe MD [address] [place] [address] documented as of this encounter Procedures Procedure Name Priority Date/Time Associated Diagnosis Comments HEMOGLOBIN A1C Routine 05/21/2023 12:33 PM EDT BASIC METABOLIC PANEL Routine 05/21/2023 12:33 PM EDT documented in this encounter Results * (ABNORMAL) Basic Metabolic Panel (05/21/2023 12:33 PM EDT) Sodium 139 135 - 145 mmol/L [facility] Potassium 3.3 3.3 - 5.1 mmol/L [facility] Chloride 102 96 - 108 mmol/L [facility] Carbon Dioxide 28 22 - 29 mmol/L [facility] Anion Gap 12 12 - 20 [facility] Urea Nitrogen (BUN) 16 9 - 16 mg/dL [facility] Creatinine, Serum 0.98 0.5 - 1.4 mg/dL [facility] Estimated Glomerular Filt Rate >60 [facility] Comment:NOTE: For -Am erican individuals, multiply the result by 1.210.Chronic Kidney Disease: Estimated GFR < 60 mL/min/1.22n7Weftlj Kidney Disease: Estimated GFR < 15 mL/min/1.73m2 Glucose 124(H) 60 - 115 mg/dL [facility] Calcium 9.8 8.4 - 10.2 mg/dL [facility] 05/21/2023 12:3 3 PM EDT 05/21/2023 1:09 PM EDT us Blaine Coley MD LAB BLOOD ORDERABLES Final Result [facility] [address] [place] [phone] * Hemoglobin A1c (05/21/2023 12:33 PM EDT) Hemoglobin A1c 5.4 <6.0 % [facility] Comment:Hemoglobin A1C Refer ence Range Adults: 4.8 - 6.0 % Non diabetic: < 6.0 % Goal: < 7.0 %Additional Action Suggested: > 8.0 %Note: Hemoglobin A1c results are invalid for patients with abnormal amounts of HbF. Blood transfusions may impact the HbA1c concentration in the patient sample. Estimated Average Glucose 108 mg/dL [facility] Comment:eAG = Estimated ave rage glucose which is %A1C expressed asaverage glucose, using the formula of the [id number]-[id number] Glucose study (ADAG), Diabetes Care, Vol.31,#8,2007 05/21/2023 12:3 3 PM EDT 05/21/2023 1:09 PM EDT us Blaine Coley MD LAB BLOOD ORDERABLES Final Result [facility] [address] [place] [address] [phone] documented in this encounter Visit Diagnoses Not on filedocumented in this encounter Care Teams Reducing System Operator Relationship Specialty Start Date End Date Blaine Okeefe MD [address] [place] [address] PCP - General Internal Medicine 04/14/14 Darci Nieto PharmD [address] [place] [address] Pharmacist Internal Medicine 04/23/23 documented as of this encounter
--- OUTSIDE RECORDS SUMMARY | 2025-01-07 13:21 | XMS_ITS | Clinical Summary ---
Author Organization [employer] Address [address] [place] [address] 7t [place] [address] Care Team Providers Care Surveillance Sensor Operator Name Role Phone Blaine Okeefe MD Primary Care Provide r Darci Nieto PharmD Unavailable [phone] Allergies No known active allergies Medications hydroCHLOROthia [...] he had an extensive work up at [facility], last seen on 03/07/2010 work [...] Description 01/05/2025 3:20 PM EDT Office Visit [facility] WALK-IN [address] [address] Mariama Dawson MD Osteoarthrosis, localized, primary, knee, right (Primary Dx) 12/04/2024 3:00 PM EDT Office Visit [facility] MEDICINE [address] [place] [address] Blaine Okeefe MD Essential hypertension (Primary Dx); Overweight (BMI 25.0-29.9); Dietary counseling; Exercise counseling; Preventative health care; Encounter for immunization 12/04/2024 Travel 11/27/2024 Patient Outreach [facility] CHC MED & PEDS [address] [place] [address] Blaine Okeefe MD Pre-visit Planning ([facility] unable to reach [facility]) 11/24/2024 Telephone [facility] MEDICINE [address] [place] [address] Blaine Okeefe MD Chart Prep from Last [...] Description 01/20/2025 9:00 AM EDT Procedure Visit [facility] MEDICINE [address] [place] [address] Robyn Marquez MD [address] [place] [address] 04/09/2025 3:00 PM EDT Office Visit [facility] MEDICINE [address] [place] [address] Blaine Okeefe MD [address] [place] [address] Health Maintenance Due Date Last Done Comments [...] PM EDT Narrative 01/05/2025 3:59 PM EDT ?[facility] ?[address] ?[place] [address] ?XRay Report ? Signed ? Patient: Millayes,Macho ?MR#: [id number] ?? [id number] ? : 1970 ?Acct:[id number] ? Age/Sex: 54 / M ?ADM Date: 04/28/25 ? Loc: HO.HHCX ? Attending Dr: Mariama Dawson MD ? Ordering Physician: Mariama Dawson MD ?? Date of Service: 01/05/25 ?? Procedure(s): XR knee RT 3V ?? Accession Number(s): [id number] ? cc: Mariama Dawson MD ? EXAMINATION: [...] DD/ 1542 ? TD/TT: 01/05/25 1553 ? Fabric Sourcer: ? Procedure Note Kateryna, Image - 01/05/[address] [address] XRay Report Signed Patient: Carlos Steele#: [id number] : 1970Acct:[id number] Age/Sex: 54 / MADM Date: 01/05/25 Loc: HO.HHCX Attending Dr: Mariama Dawson MD Ordering Physician: Mariama Dawson MD Date of Service: 01/05/25 Procedure(s): XR knee RT 3V Accession Number(s): [id number] cc: Mariama Dawson MD EXAMINATION: XR KNEE, [...] 01/05/25 1556 DD/ 1542 TD/TT: 01/05/25 1553 Fabric Sourcer: us Mariama Dawson MD IMG XR PROCEDURES Final Result * (ABNORMAL) Lipid Panel, Standard (04/29/2024 8:45 AM EDT) Triglycerides 224(H) <150 mg/dL [facility] Comment:Desirable Triglyceri de: less than 150 mg/dLBorderline High Triglyceride 150-199 mg/dLHigh Triglyceride: 200-499 mg/dLVery High Triglyceride: greater than or equal to 5OO mg/dL Cholesterol 185 <200 mg/dL [facility] Comment:Desirable Cholestero l: less than 200 mg/dLBorderline High Cholesterol: 200-239 mg/dLHigh Cholesterol: greater than 239 mg/dL LDL Cholesterol Calculated 102(H) <100 mg/dL [facility] Comment:Desirable LDL: less than 100 mg/dLNear Optimal/Above Optimal LDL: 110- 129 mg/dLBorderline High LDL: 130-159 mg/dLHigh LDL: 160-189 mg/dLVery High LDL: greater than or equal to 190 mg/dL HDL Cholesterol 39(L) >40 mg/dL [facility] Comment:Desirable HDL: great er than 40 mg/dL Note: This HDL assay may give artificially low results in patients with liver disease. 04/29/2024 8:45 AM EDT 04/29/2024 11:18 AM EDT us Blaine Coley MD LAB BLOOD ORDERABLES Final Result [facility] [address] [place] [address] [phone] * Hm Colonoscopy (01/14/2021) Colonoscopy Normal Normal 01/14/2021 Narrative Marie Viramontes - 01/14/2021 1:55 PM EDT Recommended 5 year follow up us Historical Provider HEALTH MAINTENANCE Edited Result - Final from Last 3 Months or Most Recently Relevant to Health Maintenance Insurance , [address] [place] [address] Care Teams Surveillance Sensor Operator Relationship Specialty Start Date End Date Blaine Okeefe MD [address] [place] [address] PCP - General Internal Medicine 04/14/14 Darci Nieto PharmD [address] [place] [address] Pharmacist Internal Medicine 04/23/23
--- OUTSIDE RECORDS SUMMARY | 2025-01-07 13:21 | XMS_ITS | Encounter Summary ---
Author Organization [employer] Address [address] [facility] 7t [place] [address] Care Team Providers Care Emotionally Impaired Teacher Name Role Phone Blaine Okeefe MD Primary Care Provide r Darci Nieto PharmD Unavailable [phone] Encounter Details Date Type Department Care Team (Late st Contact Info) Description 08/06/2024 Orders Only [facility] WALK-IN CENTER [address] [place], [place] [phone] Rober Gonsales MD [address] [place] [address] Social History Tobacco Use Types Packs/Day Years [...] Description 01/20/2025 9:00 AM EDT Procedure Visit [facility] MEDICINE [address] [place] [address] Robyn Marquez MD [address] [place] [address] 04/09/2025 3:00 PM EDT Office Visit [address] [address] Blaine Okeefe MD [address] [place] [address] documented as of this encounter Goals Goal Patient Goal Type Associated Problems Recent Progress Patient-Stated? Author Remain at or Below Target Blood Pressure General No Darci Nieto, PharmD documented as of this encounter Visit Diagnoses Not on filedocumented in this encounter Additional Health Concerns Assessment Noted Time PHQ-9 Depression Total Score: 0 07/31/20 24 1:01 PM EST documented as of this encounter Care Teams Emotionally Impaired Teacher Relationship Specialty Start Date End Date Blaine Okeefe MD [address] [place] [address] PCP - General Internal Medicine 04/14/14 Darci Nieto, JeffD [address] [place] [address] Pharmacist Internal Medicine 04/23/23 documented as of this encounter
--- OUTSIDE RECORDS SUMMARY | 2025-01-07 13:21 | XMS_ITS | Encounter Summary ---
Author Organization [employer] [facility] Address [address] [facility] 7t [place] [address] Care Team Providers Care Dressmaker Helper Name Role Phone Blaine Okeefe MD Primary Care Provide r Darci Nieto PharmD Unavailable [phone] Encounter Details Date Type Department Care Team (Latest Contact Info) Description 09/19/2018 Abstract [facility] CONVERSIONS Dental, Provider, DDS Social History [...] Description 01/20/2025 9:00 AM EDT Procedure Visit [facility] MEDICINE [address] [place] [address] Robyn Marquez MD [address] [place] [address] 04/09/2025 3:00 PM EDT Office Visit [facility] MEDICINE [address] [place] [phone] Blaine Okeefe MD [address] [place] [address] documented as of this encounter Visit Diagnoses Not on filedocumented in this encounter Care Teams Dressmaker Helper Relationship Specialty Start Date End Date Blaine Okeefe MD [address] [place] [address] PCP - General Internal Medicine 04/14/14 Darci Nieto PharmD [address] [place] [address] Pharmacist Internal Medicine 04/23/23 documented as of this encounter
--- OUTSIDE RECORDS SUMMARY | 2025-01-07 13:21 | XMS_ITS | Encounter Summary ---
Author Organization [employer] Address [address] [facility] 7t [place] [address] Care Team Providers Care Zinc Plater Name Role Phone Blaine Okeefe MD Primary Care Provide r Darci Nieto PharmD Unavailable [phone] Reason for Referral * Consultation (Routine) - Closed Specialty Diagnoses / Procedures Referred By Contmanolo t Referred To Contact Physical Therapy Diagnoses Osteoarthrosis, localized, primary, knee, right Mariaam Dawson MD [address] [place] [address] Phone: tel: fax: Physical Therapy, AT [address] [place] [address] [place], [place] Phone: tel: fax: Referral ID Status Reason Start Date Expiration Date V isits Requested Visits Authorized [id number] Closed Specialty Services Required 01/05/2025 01/05/2026 1 1 * Consultation (Routine) - Authorized Specialty Diagnoses / Procedures Referred By Contac t Referred To Contact Family Medicine Diagnoses Osteoarthrosis, localized, primary, knee, right Mariama Dawson MD [address] [place] [address] Phone: tel: fax: Robyn Marquez MD [address] [place] [address] Phone: tel: fax: Referral ID Status Reason Start Date Expiration Date Visits Requested Visits Authorized [id number] Authorized Consult and Treat 01/05/2025 01/05/2026 1 1 Reason for Visit * Reason Comments Knee Pain Encounter Details Date Type Department Care Team (Late st Contact Info) Description 01/05/2025 3:20 PM EDT Office Visit [facility] WALK-IN CENTER [address] [place] [address] Mariama Dawson MD [address] [place] [address] Osteoarthrosis, localized, primary, knee, right (Primary Dx) [...] Description 01/20/2025 9:00 AM EDT Procedure Visit [facility] MEDICINE [address] [place] [address] Robyn Marquez MD [address] [place] [address] 04/09/2025 3:00 PM EDT Office Visit [facility] MEDICINE [address] [place] [address] Blaine Oekefe MD [address] [place] [address] Scheduled Referrals Name Type Priority Associated Diagnoses [...] PM EDT Narrative 01/05/2025 3:59 PM EDT ?[facility] ?[address] ?[place] [address] ?XRay Report ? Signed ? Patient: Macho Steele ?MR#: [id number] ?? [id number] ? : 1970 ?Acct:[id number] ? Age/Sex: 54 / M ?ADM Date: 01/05/25 ? Loc: HO.HHCX ? Attending Dr: Mariama Dawson MD ? Ordering Physician: Mariama Dawson MD ?? Date of Service: 01/05/25 ?? Procedure(s): XR knee RT 3V ?? Accession Number(s): [id number] ? cc: Mariama Dawson MD ? EXAMINATION: [...] DD/ 1542 ? TD/TT: 01/05/25 1553 ? Light Cleaner: ? Procedure Note Kateryna, Image - 01/05/[address] [address] XRay Report Signed Patient: Carlos Steele#: [id number] : 1970Acct:[id number] Age/Sex: 54 / MADM Date: 01/05/25 Loc: HO.HHCX Attending Dr: Mariama Dawson MD Ordering Physician: Mariama Dawson MD Date of Service: 01/05/25 Procedure(s): XR knee RT 3V Accession Number(s): [id number] cc: Mariama Dawson MD EXAMINATION: XR KNEE, [...] 01/05/25 1556 DD/ 1542 TD/TT: 01/05/25 1553 Light Cleaner: Mariama Dawson MD IMG XR PROCEDURES Final Result documented in this encounter Visit Diagnoses Diagnosis Osteoarthrosis, localized, primary, knee, right- Primary documented in this encounter Additional Health Concerns Assessment Noted Time PHQ-9 Depression Total Score: 0 07/31/20 24 1:01 PM EST documented as of this encounter Care Teams Zinc Plater Relationship Specialty Start Date End Date Blaine Okeefe MD [address] [place] [address] PCP - General Internal Medicine 04/14/14 Darci Nieto PharmD [address] [place] [address] Pharmacist Internal Medicine 04/23/23 documented as of this encounter
--- OUTSIDE RECORDS SUMMARY | 2025-01-07 13:21 | XMS_ITS | Encounter Summary ---
Author Organization [facility] Address [address] [facility] 7t [place] [address] Care Team Providers Care Delinquent Tax Collection Assistant Name Role Phone Blaine Okeefe MD Primary Care Provide r Darci Nieto PharmD Unavailable [phone] Encounter Details Date Type Department Care Team (Late st Contact Info) Description 01/17/2023 Abstract [facility] MEDICINE [address] [place] [address] Blaine Okeefe MD [address] [place] [address] Social History Tobacco Use Types Packs/Day Years [...] Description 01/20/2025 9:00 AM EDT Procedure Visit [facility] MEDICINE [address] [place] [address] Robyn Marquez MD [address] [place] [phone] 04/09/2025 3:00 PM EDT Office Visit [facility] MEDICINE [address] [place] [address] Blaine Okeefe MD [address] [place] [address] documented as of this encounter Procedures Procedure Name Priority Date/Time Associated Diagnosis Comments COLONOSCOPY Routine 01/14/2021 documented in this encounter Results * Colonoscopy (01/14/2021) Colonoscopy Normal Normal 01/14/2021 Nader Marie Viramontes - 01/14/2021 1:55 PM EDT Recommended 5 year follow up us Historical Provider [facility] Edited Result - Final documented in this encounter Visit Diagnoses Not on filedocumented in this encounter Care Teams Delinquent Tax Collection Assistant Relationship Specialty Start Date End Date Blaine Okeefe MD [address] [place] [address] PCP - General Internal Medicine 04/14/14 Darci Nieto PharmD [address] [place] [address] Pharmacist Internal Medicine 04/23/23 documented as of this encounter
[2025-01-07 14:10] LABS: HBS Num1 1.02 mIU/mL (0-7.99); HBsAGNum1 0.34 S/CO (0.00-0.99); Hepatitis B Core Antibody Nonreactive (Nonreactive); Hepatitis B Surface Antigen Negative (Negative); ~Hepatitis B Surface Antibody NONREACTIVE (Nonreactive); ~Hepatitis C Antibody Nonreactive (Nonreactive)
== END 2025-01-07 11:49 | disposition home or self-care (01) ==
LOC: HO.HHCL 11:48
PROVIDERS: Visit Provider Internal Medicine
DX: I10 Essential (primary) hypertension (principal); Z00.00 Encounter for general adult medical examination without abnormal findings
CPT/HCPCS: 36415; 86704; 86706; 86803; 87340

== ENCOUNTER 2025-07-18 08:36 | Outpatient (REF) | payer OTHER, SELFPAY ==
--- OUTSIDE RECORDS SUMMARY | 2025-07-18 08:40 | XMS_ITS | Encounter Summary ---
Author Organization [facility] Address [address] [place] [address] 7t [place] [address] Care Team Providers Care Frozen Foods Manager Name Role Phone Blaine Okeefe MD Primary Care Provide r Darci Nieto PharmD Unavailable [phone] Encounter Details Date Type Department Care Team (Latest Contact Info) Description 09/19/2018 Abstract [facility] CONVERSIONS Dental, Provider, DDS Social History Tobacco Use Types Packs/Day Years Used Date Smoking Tobacco: Never Assessed Sex and Gender Information Value Date Recorded Sex Assigned at Male 07/10/2022 10:15 AM EDT Legal Sex Male 10:15 AM EDT Gender Identity Male 07/10/2022 10:15 AM EDT Sexual Orientation Straight 07/10/2022 10 :15 AM EDT documented as of this encounter Plan of Treatment Not on file documented as of this encounter Visit Diagnoses Not on filedocumented in this encounter Care Teams Frozen Foods Manager Relationship Specialty Start Date End Date Blaine Okeefe MD [address] [place] [address] PCP - General Internal Medicine 04/14/14 Darci Nieto, PharmD [address] [place] [address] Pharmacist Internal Medicine 04/23/23 documented as of this encounter
--- OUTSIDE RECORDS SUMMARY | 2025-07-18 08:40 | XMS_ITS | Encounter Summary ---
Author Organization [employer] Address [address] [facility] 7t [place] [address] Care Team Providers Care Purchasing Assistant Name Role Phone Blaine Okeefe MD Primary Care Provide r Darci Nieto PharmD Unavailable [phone] Encounter Details Date Type Department Care Team (Late st Contact Info) Description 08/06/2024 Orders Only [facility] WALK-IN CENTER [address] [place], [place] [phone] Rober Gonsales MD [address] [place] [address] Social History Tobacco Use Types Packs/Day Years [...] on file documented as of this encounter Goals Goal [...] documented as of this encounter Care Teams Purchasing Assistant Relationship Specialty Start Date End Date Blaine Okeefe MD [address] [place] [address] PCP - General Internal Medicine 04/14/14 Darci Nieto PharmD [address] [place] [address] Pharmacist Internal Medicine 04/23/23 documented as of this encounter
--- OUTSIDE RECORDS SUMMARY | 2025-07-18 08:40 | XMS_ITS | Encounter Summary ---
Author Organization [employer] Address [address] [facility] 7t [place] [address] Care Team Providers Care Track Equipment Operator Name Role Phone Blaine Okeefe MD Primary Care Provide r Darci Nieto PharmD Unavailable [phone] Encounter Details Date Type Department Care Team ([facility] st Contact Info) Description 03/05/2023 Orders Only [facility] CHC MED & PEDS [address] [place] [address] Mary Balderrama LPN Social History Tobacco Use [...] on file documented as of this encounter Procedures Procedure Name Priority Date/Time Associated Diagnosis Comments HEMOGLOBIN A1C Routine 05/21/2023 12:33 PM EDT BASIC METABOLIC PANEL Routine 05/21/2023 12:33 PM EDT documented in this encounter Results * (ABNORMAL) Basic Metabolic Panel (05/21/2023 12:33 PM EDT) Sodium 139 135 - 145 mmol/L [facility] Potassium 3.3 3.3 - 5.1 mmol/L [facility] Chloride 102 96 - 108 mmol/L [facility] Carbon Dioxide 28 22 - 29 mmol/L [facility] Anion Gap 12 12 - 20 [facility] Urea Nitrogen (BUN) 16 9 - 16 mg/dL [facility] Creatinine, Serum 0.98 0.5 - 1.4 mg/dL [facility] Estimated Glomerular Filt Rate >60 [facility] Comment:NOTE: For -Am erican individuals, multiply the result by 1.210.Chronic Kidney Disease: Estimated GFR < 60 mL/min/[id number] Kidney Disease: Estimated GFR < 15 mL/min/1.73m2 Glucose 124(H) 60 - 115 mg/dL [facility] Calcium 9.8 8.4 - 10.2 mg/dL [facility] 05/21/2023 12:3 3 PM EDT 05/21/2023 1:09 PM EDT us Blaine Coley MD LAB BLOOD ORDERABLES Final Result [facility] [address] [place] [phone] * Hemoglobin A1c (05/21/2023 12:33 PM EDT) Hemoglobin A1c 5.4 <6.0 % [facility] Comment:Hemoglobin A1C Refer ence Range Adults: 4.8 - 6.0 % Non diabetic: < 6.0 % Goal: < 7.0 %Additional Action Suggested: > 8.0 %Note: Hemoglobin A1c results are invalid for patients with abnormal amounts of HbF. Blood transfusions may impact the HbA1c concentration in the patient sample. Estimated Average Glucose 108 mg/dL [facility] Comment:eAG = Estimated ave rage glucose which is %A1C expressed asaverage glucose, using the formula of the [id number] Glucose study (ADAG), Diabetes Care, Vol.31,#8,Aug. 2007 05/21/2023 12:3 3 PM EDT 05/21/2023 1:09 PM EDT Blaine Coley MD LAB BLOOD ORDERABLES Final Result [facility] [address] [place] [address] [phone] documented in this encounter Visit Diagnoses Not on filedocumented in this encounter Care Teams Track Equipment Operator Relationship Specialty Start Date End Date Blaine Okeefe MD [address] [place] [address] PCP - General Internal Medicine 04/14/14 Darci Nieto, JeffD [address] [place] [address] Pharmacist Internal Medicine 04/23/23 documented as of this encounter
--- OUTSIDE RECORDS SUMMARY | 2025-07-18 08:40 | XMS_ITS | Clinical Summary ---
Author Organization [employer] Address [address] [facility] [address] [place] [address] Care Team Providers Care Air Traffic Control Manager Name Role Phone Blaine Okeefe MD Primary Care Provide r Darci Nieto PharmD Unavailable [phone] Allergies No known active allergies Medications acetaminophen (Tylenol) 500 MG tablet Take 2 tablets (1,000 mg) by mouth every 6 (six) hours if needed for moderate pain or fever for up to 25 doses. 50 tablet 08/06/20 24 Active meloxicam (Mobic) 15 MG tablet Take 1 tablet (15 mg) by mouth Once per day. 30 tablet 01/06/20 25 026 Active hydroCHLOROthi azide (HYDRODiuril) 25 MG tablet TAKE 1 TABLET BY MOUTH EVERY MORNING 90 tablet 3 06/18/20 25 Active enalapril (Vasotec) 10 MG tablet TAKE 1 TABLET BY MOUTH EVERY MORNING 90 tablet 3 06/18/20 25 Active atorvastatin (Lipitor) 10 MG tablet Take 1 tablet (10 mg) by mouth Once per day. 90 tablet 1 07/03/20 25 Active ibuprofen 800 MG tablet Take 1 tablet (800 mg) by mouth every 6 (six) hours if needed for mild pain. 90 tablet 3 07/04/20 24 025 atorvastatin (Lipitor) 10 MG tablet TAKE 1 TABLET BY MOUTH EVERY DAY 90 tablet 1 08/26/20 24 025 Discontinued(Re order (will not trigger notification to Pharmacy)) Active Problems Problem Noted Date Diagnosed Date [...] he had an extensive work up at [facility], last seen on 03/07/2010 work [...] adenoma of colon 07/21/2024 Essential hypertension 01/09/2019 Assessment & Plan (05/28/2025 3:00 PM EDT): Pt here for a f/u [...] were within normal limits. f/u in 4 months, Repeat BMP patient advised to adhere to a low sodium diet, encouraged about medication compliance, counseled about weight loss. Assessment & Plan (12/04/2024 3:21 PM EDT): [...] - Atorvastatin 10mg daily Assessment & Plan (05/28/2025 3:00 PM EDT): Patient with elevated lipids. Most recent lipid profile from: Lab Results Component Value Date TRIG 224 (H) 04/29/2024 CHOL 185 04/29/2024 LDLCHOLCAL 102 (H) 04/29/2024 HDL 39 (L) 04/29/2024 Currently on an regimen of: Fish oil capsules 1000 mg po TID and Atorvastatin 10 mg po qhs Today I have recommend to continue with current regimen and repeat Lipid profile advised to try to adhere to a low cholesterol diet, counseled and educated about diet and exercise, Patient encouraged to come up with a personal goal for weight loss. Assessment & Plan (07/31/2024 12:34 PM EST): [...] Encounters Date Type Department Care Team Description 07/03/[address] [facility] [address] [place] [phone] Mago Salamanca, RN 06/19/2025 10:50 AM EDT Immunization [facility] [address] [place] [phone] Oliva Grant, RN Encounter for immunization 06/19/2025 Travel 06/18/[address] [facility] [address] [place] [phone] Darci Nieto, PharmValentine 05/28/2025 3:00 PM EDT Office Visit [facility] [address] [place] [phone] Blaine Okeefe MD Essential hypertension (Primary Dx); Mixed hyperlipidemia 05/28/2025 Travel 05/27/2025 8:40 AM EDT Office Visit [facility] [address] [place] [phone] Rober Gonsales MD Throat congestion (Primary Dx); Essential hypertension; Viral URI 05/27/[address] [facility] [address] [place] [phone] Blaine Okeefe MD chart prep 05/27/2025 Travel 05/21/2025 Patient Outreach [facility] [address] [place] [phone] Blaine Okeefe MD Pre-visit Planning (SDOH screening negative and Tobacco screening negative) from Last 3 Months Immunizations Immunization Administration Dates Next Due Influenza Injectable Quadriv alant Preservative Free IIV4 MDCK 05/31/2023,05/25/2022,06/17/2021,2019 Influenza injectable quadriv alent IIV4 with preservative 05/22/2018 Influenza, IIV3, injectable 06/30/2010 Influenza, seasonal, injecta ble, preservative free 06/19/2025,05/21/2024 Moderna Covid-19 Vaccine 6+ Bivalent 08/29/2022 Pfizer Covid-19 Vaccine 12+ 07/31/2024, Pneumococcal Conjugate PCV 20 12/04/2024 TD (adult), [...] your housing situation today? I have ava josh 07/31/[address] you li [...] Sign Reading Time Taken Comments Blood Pressure 140/80 05/28/2025 3:09 PM EDT Pulse 104 05/28/2025 3:01 PM EDT Temperature 37.3 C (99.1 F) 05/28/2025 3:01 PM EDT Respiratory Rate 16 05/28/2025 3:01 PM EDT Oxygen Saturation 98% 05/28/2025 3:01 PM EDT Inhaled Oxygen Concentration - - Weight 79.2 kg (174 lb 9.6 oz) 05/28/2025 3:01 P M EDT Height 170.2 cm (5' 7 ) 05/28/2025 3:01 PM EDT Body Mass Index 27.35 05/28/2025 3:01 PM EDT Plan of Treatment Health Maintenance Due Date Last Done Comments CT Colonography 1970 FIT DNA/Cologuard 1970 FIT 1970 FOBT 1970 HIV Screening 1970 Sigmoidoscopy 1970 Hepatitis B Vaccines (1 of 3 - 19+ 3-dose series) 1989 Alcohol/Substance Use Screening 07/31/2025 07/31/2024 Depression Screening 07/31/2025 07/31/2024, 07/31/20 24 Disability Screening 07/31/2025 07/31/2024 Colonoscopy 01/14/2026 01/14/2021 Colorectal Cancer Screening 01/14/2026 SDOH Screening 05/21/2026 05/21/2025 Tobacco Screening 05/28/2026 05/28/2025 Lipid Panel 04/29/2029 04/29/2024, 07/12, 05/14/2020 DTaP/Tdap/Td Vaccines (3 - Td or Tdap) 02/17/2032 02/16/2022, 02/13/2012, 06/26/2005 RSV Patients and Patients Aged 60 years or older (1 - 1-dose 75+ series) 2045 Zoster Vaccines Completed 02/23/2023, 11/17/2022 COVID-19 Vaccine Completed 07/31/2024, , 08/29/2022, Additional history exists Pneumococcal Vaccine: 50+ Years Completed 12/04/2024 Hepatitis C Screening Completed 01/07/2025 Influenza Vaccine Completed 06/19/2025, , 05/31/2023, Additional history exists HIB Vaccines Aged Out No longer eligi [...] patient's age to complete this topic Meningococcal B Vaccine Aged Out No l onger eligible based on patient's age to complete [...] Procedure Name Priority Date/Time Associated Diagnosis Comments POCT RAPID STREP A Routine 05/27/2025 8: 55 AM EDT Viral URI POCT INFLUENZA B (ID NOW RAPID MOLECULAR) Routine 05/27/2025 8:48 AM EDT Viral URI POCT INFLUENZA A (ID NOW RAPID MOLECULAR) Routine 05/27/2025 8:48 AM EDT Viral URI POCT RAPID COVID ANTIGEN Routine 05/27/2025 8:48 AM EDT Viral URI HEPATITIS C AB W/REFL TO HCV RNA, QN, PCR Routine 01/07/2025 11:50 AM EDT Essential hypertension Preventative health care LIPID PANEL, STANDARD Routine 04/29/2024 8:45 AM EDT HM COLONOSCOPY Routine 01/14/2021 from Last 3 Months or Most Recently Relevant to Health Maintenance Results * POCT rapid strep A manually resulted (05/27/2025 8:55 AM EDT) [facility] Rapid Strep A Screen Negative Negative, None Detected Swab 05/27/2025 8:55 AM EDT us Rober Gonsales MD POINT OF CARE TEST ENTER/EDIT OR DERABLES Final Result * Influenza B (ID NOW Rapid Molecular) (05/27/2025 8:48 AM EDT) [facility] Influenza B Negative Negative, Indeterminate [facility] Swab 05/27/2025 8:48 AM EDT us Rober Gonsales MD POINT OF CARE TEST ENTER/EDIT OR DERABLES Final Result [facility] [address] [place] [phone] * Influenza A (ID NOW Rapid Molecular) (05/27/2025 8:48 AM EDT) [facility] Influenza A Negative Negative, Indeterminate [facility] Swab 05/27/2025 8:48 AM EDT us Rober Gonsales MD POINT OF CARE TEST ENTER/EDIT OR DERABLES Final Result Performing Organization Address City/[facility] Hospital/ZIP Co de Phone Number [facility] [address] [place] [phone] * POCT Rapid COVID Ag (05/27/2025 8:48 AM EDT) Rapid COVID Ag Negative [facility] Swab 05/27/2025 8:48 AM EDT Rober Gonsales MD POINT OF CARE TEST ENTER/EDIT OR DERABLES Final Result Performing Organization Address [facility] de Phone Number [facility] [address] [place] [phone] * Hepatitis C Antibody with Reflex to HCV, RNA, Quantitative, Real-Time PCR (01/07/2025 11:50 AM EDT) Pathologist [facility] Hepatitis C Antibody Nonreactive Nonreactive [facility] Comment:Antibodies to HCV no t detected; does not exclude early acuteHCV infection. Blood Venous blood specimen / Unknown 01/07/2025 11:50 AM EDT 01/07/2025 1:27 PM EDT Blaine Coley MD LAB BLOOD ORDERABLES Final Result Performing Organization Address [facility] Co de Phone Number [facility] [address] [place] [phone] * (ABNORMAL) Lipid Panel, Standard (04/29/2024 8:45 AM EDT) Triglycerides 224(H) <150 mg/dL [facility] Comment:Desirable Triglyceri de: less than 150 mg/dLBorderline High Triglyceride 150-199 mg/dLHigh Triglyceride: 200-499 mg/dLVery High Triglyceride: greater than or equal to 5OO mg/dL Cholesterol 185 <200 mg/dL [facility] Comment:Desirable Cholestero l: less than 200 mg/dLBorderline High Cholesterol: 200-239 mg/dLHigh Cholesterol: greater than 239 mg/dL LDL Cholesterol Calculated 102(H) <100 mg/dL [facility] Comment:Desirable LDL: less than 100 mg/dLNear Optimal/Above Optimal LDL: 110- 129 mg/dLBorderline High LDL: 130-159 mg/dLHigh LDL: 160-189 mg/dLVery High LDL: greater than or equal to 190 mg/dL HDL Cholesterol 39(L) >40 mg/dL [facility] Comment:Desirable HDL: great er than 40 mg/dL Note: This HDL assay may give artificially low results in patients with liver disease. 04/29/2024 8:45 AM EDT 04/29/2024 11:18 AM EDT Blaine Coley MD LAB BLOOD ORDERABLES Final Result Performing Organization Address City/State/[facility] Co de Phone Number [facility] [address] [place] [phone] * Colonoscopy (01/14/2021) Colonoscopy Normal Normal 01/14/2021 Narrative Marie Viramontes - 01/14/2021 1:55 PM EDT Recommended 5 year follow up Historical Provider HEALTH MAINTENANCE Edited Result - Final from Last 3 Months or Most Recently Relevant to Health Maintenance Insurance [employer] Care Teams Air Traffic Control Manager Relationship Specialty Start Date End Date Blaine Okeefe MD [address] [place] [phone] PCP - General Internal Medicine 04/14/14 Darci Nieto, PharmD [address] [place] [address] [phone] Pharmacist Internal Medicine 04/23/23
--- OUTSIDE RECORDS SUMMARY | 2025-07-18 08:40 | XMS_ITS | Encounter Summary ---
Author Organization [facility] Address [address] [facility] [address] [place] [address] Care Team Providers Care Explosives Operator Name Role Phone Blaine Okeefe MD Primary Care Provide r Darci Nieto PharmD Unavailable [phone] Encounter Details Date Type Department Care Team (Late st Contact Info) Description 01/17/2023 Abstract [facility] [address] [place] [address] Blaine Okeefe MD [address] [place] [address] Social History Tobacco Use Types Packs/Day Years [...] Provider HEALTH MAINTENANCE Edited Result - Final documented in this encounter Visit Diagnoses Not on filedocumented in this encounter Care Teams Explosives Operator Relationship Specialty Start Date End Date Blaine Okeefe MD [address] [place] [phone] PCP - General Internal Medicine 04/14/14 Darci Nieto PharmD [address] [place] [phone] Pharmacist Internal Medicine 04/23/23 documented as of this encounter
[2025-07-18 11:33] LABS: Alanine Aminotransferase 22 U/L (0-40); Albumin Level 4.2 g/dL (3.5-5.0); Alkaline Phosphatase 117 U/L (39-117); Anion Gap 13 (12-20); Aspartate Amino Transferase 22 U/L (5-37); Blood Urea Nitrogen 20 mg/dL (9-16); Calcium 9.1 mg/dL (8.4-10.2); Carbon Dioxide 29 mmol/L (22-29); Chloride 104 mmol/L (96-108); Cholesterol 184 mg/dL (<200); Estimated Glomerular Filt Rate > 60; HDL Cholesterol 39 mg/dL (>40); Potassium 4.4 mmol/L (3.3-5.1); Sodium 142 mmol/L (135-145); Total Protein 7.7 g/dL (6.5-8.0); Triglycerides 113 mg/dL (<150)
== END 2025-07-18 08:37 | disposition home or self-care (01) ==
LOC: HO.LAB 08:36
PROVIDERS: PCP Internal Medicine; Visit Provider Internal Medicine
DX: I10 Essential (primary) hypertension (principal); E78.2 Mixed hyperlipidemia
CPT/HCPCS: 36415; 80053; 80061